=== PATIENT | female | born 1945 | race Caucasian/White ===

== ENCOUNTER 2024-08-07 09:47 | Day surgery (SDC) | payer MEDICARE ==
[2024-08-02 12:10] LABS: BASOPHILS # (AUTO) 0.1 X10'3 (0-0.2); BASOPHILS % (AUTO) 0.9 % (0-1); EOSINOPHILS # (AUTO) 0.2 X10'3 (0-0.9); EOSINOPHILS % (AUTO) 2.8 % (0-6); HEMATOCRIT 47.1 % (35.0-45.0); HEMOGLOBIN 15.3 g/dl (12.0-16.0); LYMPHOCYTES # (AUTO) 1.7 X10'3 (1.1-4.8); LYMPHOCYTES % (AUTO) 21.3 % (21-51); MEAN CORPUSCULAR HEMOGLOBIN 28.7 PG (27.0-31.0); MEAN CORPUSCULAR HGB CONC 32.4 g/dL (33.0-36.5); MEAN CORPUSCULAR VOLUME 88.5 FL (78-98); MONOCYTES # (AUTO) 0.5 X10'3 (0-0.9); MONOCYTES % (AUTO) 6.8 % (2-12); NEUTROPHILS # (AUTO) 5.3 X10'3 (1.8-7.7); NEUTROPHILS % (AUTO) 68.2 % (42-75); PLATELET COUNT 280 X10'3 (140-440); RED BLOOD COUNT 5.32 X10'6 (4.20-5.60); RED CELL DISTRIBUTION WIDTH 17.5 % (11.5-14.5); WHITE BLOOD COUNT 7.8 X10'3 (4.5-11.0)
[2024-08-02 12:22] LABS: APTT 41 SECONDS (22-32); INR 2.6 INR; PROTHROMBIN TIME 25.3 SECONDS (9.0-12.0)
[2024-08-02 12:28] LABS: ALBUMIN 3.5 G/DL (3.4-5.0); ANION GAP 5 (8-16); BLOOD UREA NITROGEN 36 MG/DL (7-18); BUN/CREATININE RATIO 25.4 (10.0-20.0); CALCIUM 9.8 MG/DL (8.5-10.1); CHLORIDE 101 MMOL/L (99-107); CHOL/HDL RATIO 4.3 (0.00-4.99); CHOLESTEROL 165 MG/DL (0-200); CREATININE 1.42 MG/DL (0.40-0.90); GLUCOSE 96 MG/DL (70-104); HDL CHOLESTEROL 38 MG/DL (35-60); LDL CHOLESTEROL 102 MG/DL (50-100); PRO BRAIN NATRIURETIC PEPTIDE 3461 PG/ML (0-450); SODIUM 134 MMOL/L (135-145); TOTAL CARBON DIOXIDE 28.2 MMOL/L (24-32); TRIGLYCERIDES 133 MG/DL (20-135); eGFR 36 ML/MIN
[2024-08-07] VITALS (10 sets, daily range): BP systolic 95–148; BP diastolic 47–90; PULSE 15–80; RESP 13–17; TEMP 98; O2SAT 96–98
[~2024-08-07] VITALS: Ht 165.1 cm; Wt 76.2 kg
[~2024-08-07 09:47] MED LIST: AMLO5TAB16 PO; CALC1CAP21 PO; CITA20TA28 PO; CLOP75TA15 PO; EZET10TA7 PO; HYDROchlorothiazide tablet PO; IRON150C5 PO; LOP25T PO; OLME20TA69 PO; PANT-47 PO
[2024-08-07] MEDS ORDERED: EVOL140P3 SQ (10:19)
[2024-08-07] MEDS ORDERED: SACU1TAB7 PO (10:19)
[2024-08-07] MEDS ORDERED: FURO20TA4 PO (10:19)
[2024-08-07] MEDS ORDERED: WARF-55 PO (10:19)
[2024-08-07] MEDS ORDERED: AMI200T PO (10:19)
[2024-08-07] MEDS ORDERED: EMPA10TA PO (10:19)
[2024-08-07] MEDS ORDERED: WARF2.5T82 PO (10:19)
[2024-08-07] MEDS ORDERED: EZET10TA48 PO (10:19)
[2024-08-07] MEDS ORDERED: METO200T37 PO (10:19)
[2024-08-07] MEDS ORDERED: SPIR25TA5 PO (10:19)
[2024-08-07 10:40] LABS: ALBUMIN 3.5 G/DL (3.4-5.0); ANION GAP 6 (8-16); BLOOD UREA NITROGEN 32 MG/DL (7-18); BUN/CREATININE RATIO 21.3 (10.0-20.0); CALCIUM 9.1 MG/DL (8.5-10.1); CHLORIDE 103 MMOL/L (99-107); GLUCOSE 101 MG/DL (70-104); POTASSIUM 4.9 MMOL/L (3.5-5.1); SODIUM 136 MMOL/L (135-145); TOTAL CARBON DIOXIDE 27.3 MMOL/L (24-32); eCRCL 28 ML/MIN; eGFR 34 ML/MIN
[2024-08-07 10:43] LABS: INR 3.1 INR; PROTHROMBIN TIME 30.3 SECONDS (9.0-12.0)
[2024-08-07] MEDS: MIDAZolam 1mg/ml 10ml vial IV ONE (12:58)
[2024-08-07] MEDS: normal saline 1000ml 1,000 ML IV SCH (12:58)
[2024-08-07] MEDS: fentaNYL/PF 50MCG/1 ML 2ML syringe IV ONE (12:58)
== END 2024-08-07 14:15 | disposition home or self-care (01) ==
LOC: SSTAY O 09:47
PROVIDERS: ATTEND Student in an Organized Health Care Education/Training Program
DX: I48.0 Paroxysmal atrial fibrillation (principal); I49.1 Atrial premature depolarization; I25.2 Old myocardial infarction; I11.0 Hypertensive heart disease with heart failure; I50.9 Heart failure, unspecified; I25.10 Atherosclerotic heart disease of native coronary artery without angina pectoris; E78.00 Pure hypercholesterolemia, unspecified; F41.9 Anxiety disorder, unspecified; Z86.73 Personal history of transient ischemic attack (TIA), and cerebral infarction without residual deficits; Z79.01 Long term (current) use of anticoagulants; Z79.899 Other long term (current) drug therapy; Z88.0 Allergy status to penicillin
CPT/HCPCS: 36415; 80048; 80061; 83880; 85025; 85610; 85730; 92960; 93005; J2250; J3010; J7030